=== PATIENT | male | born 1975 | race Caucasian/White ===

== ENCOUNTER 2020-03-21 09:20 | Emergency (ER) | payer OTHER ==
[~2020-03-21] VITALS: Ht 193 cm; Wt 98.0 kg
[2020-03-21] MEDS ORDERED: ACETAMINOPHEN 500 MG TAB PO ONE (10:00)
[2020-03-21] MEDS ORDERED: LIDOCAINE 5% (LIDODERM) PATCH TD ONE (10:00)
[2020-03-21] MEDS ORDERED: diazePAM 5 MG TAB PO ONE (10:00)
--- NOTE | 2020-03-21 10:24 | REP ---
INDICATION: L sided hip pain down to foot COMPARISON: None. TECHNIQUE: AP and frog-lateral views of the left hip FINDINGS: Left hip is normal for age. No evidence for acute or healed injury. Surrounding soft tissues are normal. IMPRESSION: Normal left hip radiographs. <Electronically signed by Maury Ferguson > 03/21/20 [id number]
--- NOTE | 2020-03-21 10:29 | REP ---
INDICATION: severe low back pain, NKI into left leg and foot. COMPARISON: None. TECHNIQUE: Axial noncontrast images of the lumbosacral spine from mid T12 through mid sacrum with coronal and sagittal reformations. This CT examination was performed using the following dose reduction techniques: Automated exposure control, adjustment of mA and/or kv according to the patient's size, and use of iterative reconstruction technique. FINDINGS: Alignment and lordosis maintained without acute fracture/compression injury or subluxation. Moderate focal degenerative changes primarily involve L5-S1 including endplate sclerosis, marginal spurring, and facet arthropathy causing small posterior disc bulge along with canal stenosis and narrowing to the bilateral neural foramen. Similar but less pronounced changes are also noted at the L4-5 level again demonstrating small posterior disc bulge and mild canal stenosis but without obvious foraminal narrowing. Remainder of the examination appears age-appropriate/normal. IMPRESSION: Moderate degenerative spondylosis at L5-S1 and to a lesser extent L4-5. <Electronically signed by Maury Ferguson > 03/21/20 [id number]
[2020-03-21] MEDS ORDERED: PRED20TA PO (10:58)
[2020-03-21] MEDS ORDERED: CYCL-707 PO (10:58)
[2020-03-21] MEDS ORDERED: methylPREDNISolone 125MG 2ML VIAL IM ONE (11:00)
[2020-03-21 11:09] VITALS: BP 159/76
--- NOTE | 2020-03-21 16:55 | ED PDOC ---
Post-Departure Follow-Up ct ls spine faxed to donta dempsey for fu Mckenna Davies MD Mar 21, 2020 16:55
[2020-03-21] MEDS ORDERED: **NOTE PATIENT COMMENT** MISC XX ONE (22:00)
== END 2020-03-21 11:23 | disposition home or self-care (01) ==
LOC: M ED 09:20
DX: M47.817 Spondylosis without myelopathy or radiculopathy, lumbosacral region (principal)
CPT/HCPCS: 72131; 73502; 96372; 99283; J2930

== ENCOUNTER 2020-07-21 08:22 | Emergency (ER) | payer OTHER ==
[~2020-07-21] VITALS: Ht 193 cm; Wt 100.0 kg
[~2020-07-21 08:22] MED LIST: CYCL-707 PO; PRED20TA PO
[2020-07-21] MEDS ORDERED: ONETAB9 PO (08:29)
[2020-07-21] MEDS ORDERED: ACETAMINOPHEN 500 MG TAB PO ONE (10:35)
--- NOTE | 2020-07-21 11:17 | REP ---
INDICATION: felt pop in lumbar spine, decreased sensation L thigh. COMPARISON: Comparison lumbar spine CT study March 21, 2020.. TECHNIQUE: Helical scanning is acquired and 4 mm axial images re-formatted. Coronal and sagittal MPR images are generated. FINDINGS: Lumbar vertebral body heights are preserved. Alignment is normal. There is no evidence of fracture or collapse. Pedicles and posterior elements are intact. There is no evidence of spondylolysis or spondylolisthesis. There is degenerative narrowing of the L5-S1 disc with anterior spurring and mild endplate sclerosis. This is unchanged from the comparison study of March 21, 2020. There is left-sided neural foraminal narrowing from discogenic spurring. Mild facet hypertrophy is present bilaterally at L5-S1. These findings are unchanged. There is mild diffuse disc bulging also unchanged. At L4-5, there is diffuse disc bulging. Associated with ligamentum flavum and minimal facet hypertrophy, there is mild to moderate central canal stenosis at L4-5. The disc bulging appears more prominent than on the prior imaging study. The thecal sac has a triangular configuration on axial images and a 9.5 mm anteroposterior dimension at the level of the 4 5 disc. No bony neural foraminal narrowing is seen. At L3-4 there is minimum facet and ligamentum flavum hypertrophy. No central canal stenosis or foraminal narrowing is seen. No disc protrusion is noted. The L2-3 level shows developmentally borderline canal size unchanged. The L1-2 level is unremarkable. IMPRESSION: Degenerative disc disease and facet osteoarthritis most pronounced at L5-S1 and L4-5. There is left-sided neural foraminal narrowing at L5-S1 and central canal stenosis at L4-5 unchanged from the prior study. No acute bony abnormality. <Electronically signed by Casimiro Wright > 07/21/20 [id number]
[2020-07-21] MEDS ORDERED: CYCL-707 PO (11:24)
[2020-07-21 11:35] VITALS: BP 135/99
== END 2020-07-21 11:40 | disposition home or self-care (01) ==
LOC: M ED 08:22
DX: M51.26 Other intervertebral disc displacement, lumbar region (principal); M51.36 Other intervertebral disc degeneration, lumbar region; M51.37 Other intervertebral disc degeneration, lumbosacral region; M46.96 Unspecified inflammatory spondylopathy, lumbar region; M48.061 Spinal stenosis, lumbar region without neurogenic claudication; X50.0XXA Overexertion from strenuous movement or load, initial encounter; Y92.9 Unspecified place or not applicable; Y93.9 Activity, unspecified; Y99.0 Civilian activity done for income or pay

== ENCOUNTER → 2022-09-30 | Outpatient (CLI) | payer OTHER ==
[~2022-09-30] MED LIST changes: +ONETAB9 PO
[2022-09-30 09:59] LABS: BASO % 0.6 % (0.0-1.0); EOS # 0.1 10^3/uL (0.0-0.5); EOS % 1.7 % (0.0-3.0); HEMATOCRIT 43.9 % (42.0-52.0); HEMOGLOBIN 15.3 g/dl (13.5-17.5); LYMPH # 1.3 10^3/uL (1.5-5.0); LYMPH % 28.1 % (24.0-44.0); MEAN CORPUSCULAR HEMOGLOBIN 32.2 pg (27.0-33.0); MEAN CORPUSCULAR HGB CONC 34.9 g/dl (32.0-36.5); MEAN CORPUSCULAR VOLUME 92.4 fl (80.0-96.0); MONO # 0.5 10^3/uL (0.0-0.8); MONO % 9.9 % (2.0-8.0); NEUTROPHILS # 2.8 10^3/uL (1.5-8.5); NEUTROPHILS % 59.5 % (36.0-66.0); PLATELET COUNT, AUTOMATED 235 10^3/uL (150-450); RED BLOOD COUNT 4.75 10^6/uL (4.30-6.10); WHITE BLOOD COUNT 4.6 10^3/uL (4.0-10.0)
[2022-09-30 10:29] LABS: ALBUMIN 4.1 G/DL (3.2-5.2); ALKALINE PHOSPHATASE 72 U/L (46-116); ALT/SGPT 44 U/L (7.0-40); AST/SGOT 26 U/L (<34); BILIRUBIN,TOTAL 0.9 MG/DL (0.3-1.2); BLOOD UREA NITROGEN 10 MG/DL (9-23); CALCIUM LEVEL 8.9 MG/DL (8.5-10.1); CARBON DIOXIDE LEVEL 31 MMOL/L (20-31); CHLORIDE LEVEL 106 MMOL/L (98-107); CHOLESTEROL LEVEL 131 MG/DL (<200); CHOLESTEROL RISK RATIO 2.95 (<5); CREATININE FOR GFR 0.94 MG/DL (0.70-1.30); GLOMERULAR FILTRATION RATE > 60.0 (>60); GLUCOSE, FASTING 81 MG/DL (60-100); HDL CHOLESTEROL 44.3 MG/DL (>40); LDL CHOLESTEROL 67.1 MG/DL (<100); NON-HDL-C 86.7 MG/DL; POTASSIUM SERUM 4.8 MMOL/L (3.5-5.1); SODIUM LEVEL 139 MMOL/L (136-145); TOTAL PROTEIN 6.4 G/DL (5.7-8.2); TRIGLYCERIDES LEVEL 98 MG/DL (<150)
== END ==
LOC: M WUC 08:23
PROVIDERS: ATTEND Nurse Practitioner Family
DX: Z00.00 Encounter for general adult medical examination without abnormal findings (principal)

== ENCOUNTER 2023-04-19 06:45 | Day surgery (SDC) | payer OTHER ==
[~2023-04-19] VITALS: Ht 193 cm; Wt 92.9 kg
[~2023-04-19 06:45] MED LIST changes: +FLON1SPR; +NS 1,000 ML IV ONE; +TIZA4CAP PO
[2023-04-19] MEDS ORDERED: propofoL 200 MG/20 ML VIAL As Ordered ONE (07:56)
[2023-04-19 08:09] VITALS: TEMP 97.7
[2023-04-19 08:25] VITALS: BP 137/84; O2SAT 97
== END 2023-04-19 08:29 | disposition home or self-care (01) ==
LOC: M OPP 06:45
PROVIDERS: ATTEND Surgery
DX: Z12.11 Encounter for screening for malignant neoplasm of colon (principal); Z87.891 Personal history of nicotine dependence; Z79.1 Long term (current) use of non-steroidal anti-inflammatories (NSAID); Z79.51 Long term (current) use of inhaled steroids

== ENCOUNTER → 2023-06-19 | Outpatient (CLI) | payer OTHER ==
[~2023-06-19] MED LIST changes: -NS 1,000 ML IV ONE
[2023-06-19 11:48] LABS: BASO % 0.6 % (0.0-1.0); EOS # 0.1 10^3/uL (0.0-0.5); EOS % 1.1 % (0.0-3.0); HEMATOCRIT 42.4 % (42.0-52.0); LYMPH # 1.2 10^3/uL (1.5-5.0); LYMPH % 26.2 % (24.0-44.0); MEAN CORPUSCULAR HEMOGLOBIN 32.3 pg (27.0-33.0); MEAN CORPUSCULAR HGB CONC 35.4 g/dl (32.0-36.5); MEAN CORPUSCULAR VOLUME 91.4 fl (80.0-96.0); MONO # 0.5 10^3/uL (0.0-0.8); MONO % 10.6 % (2.0-8.0); NEUTROPHILS # 2.9 10^3/uL (1.5-8.5); NEUTROPHILS % 61.3 % (36.0-66.0); PLATELET COUNT, AUTOMATED 241 10^3/uL (150-450); RED BLOOD COUNT 4.64 10^6/uL (4.30-6.10); WHITE BLOOD COUNT 4.7 10^3/uL (4.0-10.0)
[2023-06-19 12:00] LABS: ERYTHROCYTE SEDIMENTATION RATE 3 mm/hr (0-15)
[2023-06-19 12:11] LABS: C REACTIVE PROTEIN QUANTITATIV < 0.40 MG/DL (<1.0)
[2023-06-19 12:13] LABS: RHEUMATOID FACTOR QUANT < 3.5 IU/ML (<14)
[2023-06-26 13:07] LABS: ANTINUCLEAR ANTIBODIES DIRECT Negative (Negative); HLA-B27 Negative (.)
== END ==
LOC: M WUC 09:24
PROVIDERS: ATTEND Physician Assistant
DX: M51.36 Other intervertebral disc degeneration, lumbar region (principal)

== ENCOUNTER → 2023-07-14 | Outpatient (CLI) | payer OTHER ==
[2023-07-14 16:37] LABS: PLATELET COUNT, AUTOMATED 239 10^3/uL (150-450)
[2023-07-14 16:52] LABS: COLLAGEN EPINEPHRINE 244 SECONDS (74-162)
[2023-07-14 17:06] LABS: INR 1.14; PARTIAL THROMBOPLASTIN TIME 31.4 SECONDS (24.8-34.2); PROTHROMBIN TIME 14.3 SECONDS (12.5-14.5)
[2023-07-14 17:19] LABS: COLLAGEN ADP 97 SECONDS (56-103)
== END ==
LOC: M WUC 14:10
PROVIDERS: ATTEND Physician Assistant
DX: Z01.818 Encounter for other preprocedural examination (principal)

== ENCOUNTER → 2023-07-22 | Outpatient (CLI) | payer OTHER ==
[2023-07-22 10:36] LABS: COLLAGEN EPINEPHRINE 136 SECONDS (74-162)
== END ==
LOC: M LAB 09:27
PROVIDERS: ATTEND Physician Assistant
DX: Z01.812 Encounter for preprocedural laboratory examination (principal)

== ENCOUNTER → 2024-08-09 | Outpatient (CLI) | payer OTHER | LOC: M SLEEP HO 15:01 | PROVIDERS: ATTEND Physician Assistant | DX: G47.30 Sleep apnea, unspecified (principal) ==

== ENCOUNTER → 2025-01-01 | Outpatient (REF) | payer OTHER | LOC: M SMT 13:22 | PROVIDERS: ATTEND Urology | DX: Z30.2 Encounter for sterilization (principal) ==

== ENCOUNTER 2025-01-05 13:50 | Emergency (ER) | payer OTHER ==
[~2025-01-05] VITALS: Ht 193 cm; Wt 94.2 kg
[2025-01-05] MEDS ORDERED: CEPH500C (14:02)
[2025-01-05 17:10] VITALS: BP 137/83; TEMP 98.5; O2SAT 100
== END 2025-01-05 17:11 | disposition home or self-care (01) ==
LOC: M ED 13:50
DX: N99.840 Postprocedural hematoma of a genitourinary system organ or structure following a genitourinary system procedure (principal); D40.12 Neoplasm of uncertain behavior of left testis; N43.3 Hydrocele, unspecified; I86.1 Scrotal varices; N44.1 Cyst of tunica albuginea testis; Z98.52 Vasectomy status; Z79.899 Other long term (current) drug therapy

== ENCOUNTER → 2025-02-28 | Outpatient (REF) | payer OTHER ==
[~2025-02-28] MED LIST changes: +CEPH500C
[2025-02-28 10:13] LABS: SEMEN APPEARANCE OPAQUE (OPAQUE); SEMEN VISCOSITY LIQUID (LIQUID); SEMEN VOLUME 1.1 ml (2.0-5.0); WBC CONCENTRATION <=1 M/ml (<=1 M/ml)
== END ==
LOC: M SMT 09:54
PROVIDERS: ATTEND Urology
DX: Z30.2 Encounter for sterilization (principal)

== ENCOUNTER → 2025-04-08 | Outpatient (CLI) | payer OTHER | LOC: M RAD 16:01 | PROVIDERS: ATTEND Urology | DX: N50.89 Other specified disorders of the male genital organs (principal); N44.2 Benign cyst of testis; I86.1 Scrotal varices ==